=== PATIENT | female | born 1955 | race Caucasian/White ===

== ENCOUNTER 2025-04-20 09:27 | Inpatient (IN) ==
--- NOTE | 2025-04-20 09:50 | Emergency Department Note ---
Impression & Plan Vomiting and diarrhea, Chills, Hypomagnesemia, Hypokalemia, History of Whipple procedure ED Provider Note NAME: SUN JONES AGE: 69 SEX: F : 1955 ARRIVES VIA: Ambulance INFORMANT: [Patient] ED PROVIDER(S): [Lucio Reyes MD] CHIEF COMPLAINT: Illness HISTORY OF PRESENT ILLNESS: Patient is a 69-year-old female who presents with chills, vomiting and diarrhea. This all began this morning. She felt fine yesterday. The patient has not had sick contacts, no bad food eaten. The patient did have a Whipple procedure at [facility] 2 weeks ago. She still has a drain in place. There has been no cough or congestion. She has not had any increased abdominal pain, no abdominal bloating. No urinary complaints. She states there is no blood in the vomit or diarrhea. PMHx/PSHx/Social Hx: See Below PHYSICAL EXAM: GENERAL: Patient is in no acute distress. HEENT: No acute trauma, normocephalic atraumatic, mucous membranes dry, no nasal congestion. NECK: No stridor, no adenopathy, no meningismus, trachea is midline. LUNGS: Clear to auscultation bilaterally, no wheeze, no rhonchi, breath sounds equal. HEART: Mildly tachycardic, regular rhythm, no murmurs. ABDOMEN: Soft, nontender, no peritonitis. No distention. She has some healing surgical wounds. There is a drain present in the right upper to mid abdomen. EXTREMITIES: No cyanosis, full range of motion of all the joints without pain or difficulty. NEUROLOGIC: Oriented x 3, no acute motor or sensory deficits, no focal weakness. SKIN: No jaundice, no diaphoresis. DIFFERENTIAL DIAGNOSIS: Foodborne or viral illness, electrolyte imbalance, dehydration, bowel obstruction, among others. EMERGENCY DEPARTMENT PROCEDURES: MEDICAL DECISION MAKING: There is no leukocytosis or concerning anemia. There is a normal platelet count. There is no bandemia. Potassium and magnesium were both somewhat low, no renal failure. No concerning liver enzyme elevation. No evidence for pancreatitis. Urinalysis does not show findings of infection. ECG shows a sinus rhythm, no obvious ST elevation. Abdominal and pelvis CT shows findings consistent with her recent surgery, no bowel obstruction. Lactic acid level is not elevated making severe sepsis less likely. The patient received IV saline, 1.5 L. She was given IV potassium, IV magnesium. She was given IV Zofran. She eventually received a dose of IV cefepime as empiric antibiotic coverage. She received IV Tylenol. The patient was feeling improved with the treatment mentioned above. I did reach out to her surgical team at [facility]. The patient does not need emergent transfer to their facility. Observation was felt warranted here at our facility. The patient is going to be hospitalized here at [facility] for observation. If she does well, she can likely be discharged home. If she worsens, transfer to [place] may be required. At this point, the cause for her complaints is unclear, certainly, viral illness or foodborne illness is a consideration. Postsurgical infection is a consideration. I did speak with case management, the on-call hospitalist was consulted. Prior/Outside records/notes reviewed: Today's EMS notes describing her presentation and transport to this hospital. ECG per my interpretation: Indication was tachycardia. The ECG shows a normal sinus rhythm with a rate of 92. There is some baseline artifact. There is an old inferior infarct. There is no ST elevation, no PVCs. QTc is 425. Continuous Cardiac Monitoring per my interpretation: An order was placed for continuous cardiac monitoring. The monitor shows a rate of 95 with normal sinus rhythm. Imaging/x-ray results per my interpretation: Chronic Medical/Social conditions affecting care: Whipple procedure performed 2 weeks ago at [facility] Care/Management discussed with: Case management, the on-call hospitalist. Surgical oncology at [facility]-Dr. Ta Level of care consideration(s): After review of the information above and other included data: --I believe the patient requires escalation of care to admission Critical Care Note: I have personally spent 46 minutes of critical care time in the direct management of this patient. This includes bedside care, interpretation of diagnostic studies, and testing, discussion with consultants, patient, and family members, and other required patient management activities. This 46 minutes is in excess of all separately billable procedures. DISPOSITION: Admission Past Med/Surg History Problem List (Updated 04/20/25 @ 13:36 by Jose Crespo MD) Hypokalemia Hypomagnesemia GERD (gastroesophageal reflux disease) Primary hypothyroidism Essential hypertension H/O Whipple procedure Viral gastroenteritis H/O bilateral inguinal hernia repair (07/28/21) Open Bilateral Inguinal Hernia Repair with Mesh(Bilateral) - Oj Najera, DO Open Umbilical Hernia Repair 07/28/21 Encounter for pre-operative examination Arthritis Umbilical hernia without mention of obstruction or gangrene Bilateral inguinal hernia (BIH) Epistaxis Did have nosebleed to left side beginning of Jul 2021 - had recent cauterization- if anything needs put up nose- patient requests right side Medical History Hyperlipidemia BORDERLINE-NO MEDS Osteoarthritis Hiatal hernia IBS (irritable bowel syndrome) GERD (gastroesophageal reflux disease) Hypothyroidism Anxiety Hypertension Sleep apnea CPAP Hx of thyroid nodule Surgical History (Updated 04/20/25 @ 13:35 by Jose Crespo MD) H/O umbilical hernia repair Open Bilateral Inguinal Hernia Repair with Mesh(Bilateral) - Oj Najera, DO Open Umbilical Hernia Repair 07/28/21 History of esophagogastroduodenoscopy (EGD) History of nasal cauterization History of surgery BLADDER SLING PROCEDURE History of wisdom tooth extraction History of tonsillectomy History of D&C History of cholecystectomy Status post trigger finger release History of colonoscopy 2020 History of partial thyroidectomy FOR NODULE-BENIGN Family History Brother Thyroid cancer Father Diabetes Stroke Mother Family history of reaction to anesthesia PONV Other Hypertension No significant family history Social History Smoking Status: Never smoker Second Hand Exposure: No; Do You Dip or Chew Tobacco: No; Hx Alcohol Use: No Hx Substance Use: No Preferred Language: Citizen Of The [place] Communication Ability: Effective Ring Maker Required: No Beliefs That Will Affect Care: None marital status: Current Living Situation: Family Current Living Situation Comment: DAUGHTER LIVES WITH PT current occupational status: retired How many Children do You have: 3 Feels Safe at Home: Yes Diet: regular during the past year weight has: remained stable Assistive Devices: Glasses Allergies Allergies Allergy/AdvReac Type Severity Reaction Status Date / Time piperacillin [From Zosyn] Allergy Mild itching, Unverified 04/20/25 12:32 rash tazobactam [From Zosyn] Allergy Mild itching, Unverified 04/20/25 12:32 rash amoxicillin AdvReac Mild Diarrhea Verified 09/14/21 09:37 Home Meds Home Medications Medication Instructions Recorded Confirmed amlodipine 5 mg tablet 5 mg PO QAM 09/21/19 04/20/25 levothyroxine 50 mcg tablet 75 mcg PO QAM 09/21/19 04/20/25 sertraline 100 mg tablet 100 mg PO QAM 09/21/19 04/20/25 acetaminophen 500 mg tablet 500 - 1,000 mg PO Q6H PRN Pain 07/22/21 04/20/25 vitamin B complex 0 cap PO QPM 07/22/21 04/20/25 Eliquis 1 tab PO BID 04/20/25 04/20/25 betamethasone, augmented 0.05 % 1 applic topical BID PRN Other 04/20/25 04/20/25 topical cream [id number] 2 cap PO UD 04/20/25 04/20/25 36,000-114,000-180,000 unit capsule,delay rel (Creon) ondansetron HCl 4 mg tablet 4 mg PO DAILY PRN n/v 04/20/25 04/20/25 oxycodone 5 mg tablet 5 mg PO DIRECTED PRN Pain 04/20/25 04/20/25 pantoprazole 40 mg tablet,delayed 40 mg PO BID 04/20/25 04/20/25 release rosuvastatin 10 mg tablet 10 mg PO DAILY 04/20/25 04/20/25 Results & Data (ED) Vital Signs Vital Signs - 24 hr 04/20/25 09:30 04/20/25 09:42 04/20/25 10:00 Temperature 37.6 C H Temperature Source Oral Pulse Rate 95 H 95 H Pulse Rate [Apical] Pulse Rate from SpO2 Sensor Pulse Rhythm [Apical] Pulse Strength [Apical] Respiratory Rate 24 Respiratory Effort / Characteristics Respiratory Depth Respiratory Pattern Blood Pressure 121/68 Blood Pressure [Right Arm] Blood Pressure Mean 85 Blood Pressure Mean [Right Arm] Blood Pressure Position Semi-fowlers Blood Pressure Position [Right Arm] Pulse Oximetry 90 88 L Oxygen Delivery Method Room Air Room Air Oxygen Flow Rate Sepsis Recent Fever Within 48 Hours No Sepsis New/Unexplained Change in Mental Status No Sepsis Action Taken by Nursing No Action Required 04/20/25 10:01 04/20/25 10:15 04/20/25 10:30 Temperature Temperature Source Pulse Rate 83 Pulse Rate [Apical] Pulse Rate from SpO2 Sensor 82 Pulse Rhythm [Apical] Pulse Strength [Apical] Respiratory Rate 23 Respiratory Effort / Characteristics Respiratory Depth Respiratory Pattern Blood Pressure 114/70 116/63 Blood Pressure [Right Arm] Blood Pressure Mean 84 84 Blood Pressure Mean [Right Arm] Blood Pressure Position Blood Pressure Position [Right Arm] Pulse Oximetry 93 92 Oxygen Delivery Method Nasal Cannula Nasal Cannula Oxygen Flow Rate 2 2 Sepsis Recent Fever Within 48 Hours Sepsis New/Unexplained Change in Mental Status Sepsis Action Taken by Nursing 04/20/25 10:30 04/20/25 10:30 04/20/25 10:30 Temperature Temperature Source Pulse Rate 76 Pulse Rate [Apical] Pulse Rate from SpO2 Sensor 76 Pulse Rhythm [Apical] Pulse Strength [Apical] Respiratory Rate Respiratory Effort / Characteristics Respiratory Depth Respiratory Pattern Blood Pressure 116/63 116/63 Blood Pressure [Right Arm] Blood Pressure Mean 84 84 Blood Pressure Mean [Right Arm] Blood Pressure Position Blood Pressure Position [Right Arm] Pulse Oximetry 90 Oxygen Delivery Method Oxygen Flow Rate Sepsis Recent Fever Within 48 Hours Sepsis New/Unexplained Change in Mental Status Sepsis Action Taken by Nursing 04/20/25 11:00 04/20/25 11:00 04/20/25 11:00 Temperature Temperature Source Pulse Rate 76 Pulse Rate [Apical] Pulse Rate from SpO2 Sensor 74 Pulse Rhythm [Apical] Pulse Strength [Apical] Respiratory Rate 13 Respiratory Effort / Characteristics Respiratory Depth Respiratory Pattern Blood Pressure 120/72 120/72 Blood Pressure [Right Arm] Blood Pressure Mean 77 77 Blood Pressure Mean [Right Arm] Blood Pressure Position Blood Pressure Position [Right Arm] Pulse Oximetry 94 Oxygen Delivery Method Oxygen Flow Rate Sepsis Recent Fever Within 48 Hours Sepsis New/Unexplained Change in Mental Status Sepsis Action Taken by Nursing 04/20/25 11:36 04/20/25 11:42 04/20/25 12:00 Temperature Temperature Source Pulse Rate 68 80 Pulse Rate [Apical] Pulse Rate from SpO2 Sensor 68 81 Pulse Rhythm [Apical] Pulse Strength [Apical] Respiratory Rate Respiratory Effort / Characteristics Respiratory Depth Respiratory Pattern Blood Pressure 122/70 Blood Pressure [Right Arm] Blood Pressure Mean 91 Blood Pressure Mean [Right Arm] Blood Pressure Position Blood Pressure Position [Right Arm] Pulse Oximetry 96 97 Oxygen Delivery Method Oxygen Flow Rate Sepsis Recent Fever Within 48 Hours Sepsis New/Unexplained Change in Mental Status Sepsis Action Taken by Nursing 04/20/25 12:00 04/20/25 12:00 04/20/25 12:03 Temperature Temperature Source Pulse Rate 73 Pulse Rate [Apical] Pulse Rate from SpO2 Sensor 73 Pulse Rhythm [Apical] Pulse Strength [Apical] Respiratory Rate 20 Respiratory Effort / Characteristics Respiratory Depth Respiratory Pattern Blood Pressure 122/70 122/70 Blood Pressure [Right Arm] Blood Pressure Mean 91 91 Blood Pressure Mean [Right Arm] Blood Pressure Position Blood Pressure Position [Right Arm] Pulse Oximetry 95 Oxygen Delivery Method Oxygen Flow Rate Sepsis Recent Fever Within 48 Hours Sepsis New/Unexplained Change in Mental Status Sepsis Action Taken by Nursing 04/20/25 12:21 04/20/25 12:30 04/20/25 12:30 Temperature Temperature Source Pulse Rate 71 Pulse Rate [Apical] Pulse Rate from SpO2 Sensor 72 Pulse Rhythm [Apical] Pulse Strength [Apical] Respiratory Rate 21 Respiratory Effort / Characteristics Respiratory Depth Respiratory Pattern Blood Pressure 114/72 114/72 Blood Pressure [Right Arm] Blood Pressure Mean 87 87 Blood Pressure Mean [Right Arm] Blood Pressure Position Blood Pressure Position [Right Arm] Pulse Oximetry 95 Oxygen Delivery Method Oxygen Flow Rate Sepsis Recent Fever Within 48 Hours Sepsis New/Unexplained Change in Mental Status Sepsis Action Taken by Nursing 04/20/25 12:36 04/20/25 13:00 Temperature Temperature Source Pulse Rate 75 Pulse Rate [Apical] 69 Pulse Rate from SpO2 Sensor 75 Pulse Rhythm [Apical] Regular Pulse Strength [Apical] Normal Respiratory Rate 18 20 Respiratory Effort / Characteristics Non-Labored Spontaneous Respiratory Depth Normal Respiratory Pattern Regular Blood Pressure Blood Pressure [Right Arm] 112/69 Blood Pressure Mean Blood Pressure Mean [Right Arm] 83 Blood Pressure Position Blood Pressure Position [Right Arm] Lying Pulse Oximetry 96 90 Oxygen Delivery Method Room Air Oxygen Flow Rate Sepsis Recent Fever Within 48 Hours Sepsis New/Unexplained Change in Mental Status Sepsis Action Taken by [facility] Medications Current Medication List: was personally reviewed by me Laboratory Data Attestation: I reviewed the patient's lab results. 04/20/25 09:45 04/20/25 09:45 Lab Results 04/20/25 04/20/25 04/20/25 Range/Units 09:45 10:57 12:04 WBC 10.01 (4.8-10.8) K/ul RBC 4.27 (4.20-5.40) M/uL Hgb 12.0 (12.0-16.0) g/dl Hct 36.4 L (37.0-47.0) % MCV 85.2 (80.0-100.0) fL MCH 28.1 (25.0-34.0) pg MCHC 33.0 (32.0-36.0) g/dL RDW Std Deviation 42.6 (36.4-46.3) fL RDW Coeff of Swathi 13.6 (11.5-14.5) % Plt Count 308 (130-400) K/uL MPV 9.1 L (9.4-12.4) fL Immature Gran % (Auto) 1.0 % Neut % (Auto) 84.0 % Lymph % (Auto) 4.1 % Preston % (Auto) 8.9 % Eos % (Auto) 1.7 % Baso % (Auto) 0.3 % Neut # (Auto) 8.41 H (1.40-6.50) K/uL Lymph # (Auto) 0.41 L (1.20-3.40) K/uL Preston # (Auto) 0.89 H (0.11-0.59) K/uL Eos # (Auto) 0.17 (0.00-0.50) K/uL Baso # (Auto) 0.03 (0.00-0.20) K/uL Immature Gran # (Auto) 0.10 (0.01-0.20) K/uL Sodium 138 (136-145) mmol/L Potassium 3.1 L (3.5-5.1) mmol/L Chloride 101 (98-107) mmol/L Carbon Dioxide 27 (21-32) mmol/L Anion Gap 10 (3-11) BUN 12 (6-23) mg/dl Creatinine 0.66 (0.6-1.2) mg/dl Est Cr Clr Drug Dosing 86.9 ml/min eGFR 95.49 BUN/Creatinine Ratio 18.2 (10-20) Glucose 140 H (70-99(Fasting)) mg/dl Lactate 0.7 (0.4-2.0) mmol/L Calcium 8.5 L (8.6-10.3) mg/dl Magnesium 1.6 L (1.7-2.4) mg/dl Total Bilirubin 0.6 (0.2-1.0) mg/dl AST 19 (13-39) U/L ALT 17 (7-52) U/L Alkaline Phosphatase 64 (34-104) U/L Total Protein 7.1 (6.0-8.3) gm/dl Albumin 3.5 (3.4-5.0) gm/dl Globulin 3.6 (2.5-4.0) gm/dl Albumin/Globulin Ratio 1.0 (0.9-2) Lipase 57 (11-82) U/L Urine Color Yellow Urine Appearance Clear (Clear) Urine pH 6.5 (4.5-7.5) Ur Specific Hurley 1.029 (1.000-1.030) Urine Protein Negative (Negative) Urine Glucose (UA) Negative (Negative) Urine Ketones Negative (Negative) Urine Blood Negative (Negative) Urine Nitrite Negative (Negative) Urine Bilirubin Negative (Negative) Urine Urobilinogen Negative (Negative) Ur Leukocyte Esterase Negative (Negative) Urine Comment Administered Medications Discontinued Medications Sodium Chloride (Nss) 1,000 mls @ 999 mls/hr IV .Q1H1M ONE Stop: 04/20/25 10:42 Last Infusion: 04/20/25 11:16 Dose: Infused Documented By: Admin: 04/20/25 09:56 Dose: 999 mls/hr Documented By: CEF Acetaminophen (Ofirmev) 1,000 mg in 100 mls @ 400 mls/hr IV NOW STA Stop: 04/20/25 09:56 Last Infusion: 04/20/25 10:28 Dose: Infused Documented By: Admin: 04/20/25 09:59 Dose: 400 mls/hr Documented By: CEF Potassium Chloride (K Alexei / Wtr) 10 meq in 100 mls @ 100 mls/hr IV ONE ONE Stop: 04/20/25 11:58 Last Infusion: 04/20/25 12:17 Dose: Infused Documented By: Admin: 04/20/25 11:13 Dose: 100 mls/hr Documented By: GARDENIA Magnesium Sulfate/Dextrose (Magnesium Sulfate / D5w) 1 gm in 100 mls @ 100 mls/hr IV NOW STA Stop: 04/20/25 11:58 Last Infusion: 04/20/25 12:16 Dose: Infused Documented By: Admin: 04/20/25 11:13 Dose: 100 mls/hr Documented By: GARDENIA Piperacillin Sod/Tazobactam Sod (Zosyn) 4.5 gm in 100 mls @ 200 mls/hr IV NOW ONE Stop: 04/20/25 12:17 Last Admin: 04/20/25 12:16 Dose: Not Given Documented By: GARDENIA Cefepime HCl (Maxipime 2000mg) 2,000 mg in 20 mls @ 5 mls/min IV NOW STA; Protocol Stop: 04/20/25 12:12 Last Admin: 04/20/25 12:20 Dose: 5 mls/min Documented By: GARDENIA Sodium Chloride (Nss) 500 mls @ 999 mls/hr IV .Q31M ONE Stop: 04/20/25 12:40 Last Admin: 04/20/25 12:20 Dose: 999 mls/hr Documented By: GARDENIA Ioversol (Optiray 320 100ml) 94 ml IV ONCE ONE Stop: 04/20/25 10:50 Last Admin: 04/20/25 10:49 Dose: 94 ml Documented By: MIKE Ondansetron HCl (Ondansetron Inj 2 Mg/Ml 2 Ml Vial) 4 mg IV NOW STA Stop: 04/20/25 09:43 Last Admin: 04/20/25 09:55 Dose: 4 mg Documented By: ROSAMARIA Imaging Data Radiologist's Impression: Abdomen/Pelvis CT 04/20/25 09:42 CT SCAN OF THE ABDOMEN AND PELVIS WITH IV CONTRAST CLINICAL HISTORY: Status post Whipple. Nausea and vomiting. COMPARISON STUDY: CT of the abdomen and pelvis February 10, 2021. TECHNIQUE: Following the IV administration of 94 cc of Optiray 320, CT scan of the abdomen and pelvis is performed from the lung bases to the proximal femora. Images are reviewed in the axial, sagittal, and coronal planes. IV contrast was administered without complication. A dose lowering technique was utilized adhering to the principles of ALARA. CT DOSE: 1230.16 mGy.cm FINDINGS: Visualized lung bases are unremarkable. No pneumatosis, free air or portal venous gas is present. A surgical drain is in place following Whipple procedure. Note, there is moderate to extensive subcutaneous gas within the visualized lower chest, abdomen and pelvis. No associated fluid collections are present. An elongated operative bed fluid collection measures 5.8 x 2.1 cm. This has mild peripheral enhancement. A small amount of fluid adjacent to the proximal jejunum is also noted. Adjacent stranding is present. Mild enhancement of the common bile duct is noted without biliary ductal dilatation. There are no hepatic lesions. There is mild splenomegaly. Adrenal glands and left kidney are normal. There is a 9.4 cm right renal cyst. There is no hydronephrosis. Trace fluid within the pelvis is present. Note is made of extensive sigmoid diverticulosis without evidence for acute diverticulitis. Major vasculature is patent. There are mildly enlarged peripancreatic and mesenteric lymph nodes. A peripancreatic lymph node on image 132 measures 1.8 x 1.5 cm. A mesenteric lymph node on image 201 measures 2 x 1.2 cm. IMPRESSION: 1. Status post Whipple procedure. 5.8 x 2.1 cm elongated operative bed fluid collection with minimal peripheral enhancement. This is likely postsurgical and favors a seroma. Small amount of fluid with adjacent stranding within the right upper quadrant which is likely postsurgical. Surgical drain in place. 2. Moderate to extensive subcutaneous gas within the lower chest, abdomen and pelvis. This may be postsurgical however is indeterminate and the etiology is not clearly identified on this examination. No fistula identified. An occult fistula or infectious process with necrotizing fasciitis cannot be completely excluded and could be correlated clinically. No associated fluid collections. No pneumoperitoneum. 3. Wall thickening of the common bile duct and proximal jejunum which is likely postsurgical status post choledochojejunostomy. 4. Mildly enlarged peripancreatic and mesenteric lymph nodes. These are likely reactive but should be assessed on follow-up exams to ensure resolution. ACT 112: Negative or not required by law. Electronically signed by: Saw Schroeder M.D. 04/20/2025 11:40 AM Discharge Plan Visit Data Chief Complaint: Illness ED Provider: Lucio Reyes Discharge Problem: Vomiting and diarrhea, Chills, Hypomagnesemia, Hypokalemia, History of Whipple procedure Patient Disposition: Admitted As Inpatient Condition: Fair Forms Stand Alone Forms: [employer] Prescriptions Prescriptions: No Action sertraline 100 mg Tablet 100 mg PO QAM amlodipine 5 mg Tablet 5 mg PO QAM levothyroxine 50 mcg Tablet 75 mcg PO QAM vitamin B complex Capsule 0 cap PO QPM Patient Comments: 04/20- per pt she currently has this on hold acetaminophen 500 mg Tablet 500 - 1,000 mg PO Q6H PRN (Reason: Pain) ondansetron HCl 4 mg tablet 4 mg PO DAILY PRN (Reason: n/v) betamethasone, augmented 0.05 % cream 1 applic topical BID PRN (Reason: Other) pantoprazole 40 mg tablet,delayed release (DR/EC) 40 mg PO BID oxycodone 5 mg tablet 5 mg PO DIRECTED PRN (Reason: Pain) rosuvastatin 10 mg tablet 10 mg PO DAILY Creon 36,000-114,000- 180,000 unit capsule,delayed release(DR/EC) 2 cap PO UD Rx Instructions: 2 with meals and 1 with snack Eliquis 1 tab PO BID Patient Comments: 04/20- per pt she's only taking temporarily due to surgery. She's unsure of the strength Referrals Referrals: Priyanka Lazcano, DO [Outside Practitioners] -
[2025-04-20] MEDS: ONDANSETRON INJ 2 MG/ML 2 ML VIAL IV STA (09:55)
[2025-04-20] MEDS: SODIUM CHLORIDE 0.9% 1,000 ML IV ONE (09:56)
[2025-04-20] MEDS: ACETAMINOPHEN 1,000 MG/100 ML VIAL IV STA (09:59)
[2025-04-20 10:13] LABS: Hematocrit (blood only) 36.4 % (37.0-47.0); Hemoglobin 12.0 g/dl (12.0-16.0); Immature Granulocytes # (auto) 0.10 K/uL (0.01-0.20); Immature Granulocytes % (auto) 1.0 %; Mean Corpuscular Hemoglobin 28.1 pg (25.0-34.0); Mean Corpuscular Volume 85.2 fL (80.0-100.0); Platelet Count 308 K/uL (130-400); RDW Standard Deviation 42.6 fL (36.4-46.3); Red Blood Count 4.27 M/uL (4.20-5.40); White Blood Count 10.01 K/ul (4.8-10.8)
[2025-04-20 10:37] LABS: Alanine Aminotransferase 17.0 U/L (7-52); Albumin Globulin Ratio 1.0 (0.9-2); Alkaline Phosphatase 64.0 U/L (34-104); Anion Gap 10.0 (3-11); Bilirubin,Total 0.6 mg/dl (0.2-1.0); Blood Urea Nitrogen 12.0 mg/dl (6-23); Calcium 8.5 mg/dl (8.6-10.3); Carbon Dioxide 27.0 mmol/L (21-32); Chloride 101.0 mmol/L (98-107); Creatinine Clr Calc Pharmacy 86.9 ml/min; Globulin 3.6 gm/dl (2.5-4.0); Glucose 140.0 mg/dl (70-99(Fasting)); Lipase 57.0 U/L (11-82); Magnesium 1.6 mg/dl (1.7-2.4); Potassium 3.1 mmol/L (3.5-5.1); Sodium 138.0 mmol/L (136-145); Total Protein 7.1 gm/dl (6.0-8.3)
[2025-04-20] MEDS: OPTIRAY 320 100ml IV ONE (10:49)
[2025-04-20 11:09] LABS: Appearance Urine Clear (Clear); Glucose Urine UA Negative (Negative)
[2025-04-20] MEDS: POTASSIUM CHLORIDE / WTR 10 MEQ/100 ML PLCT IV ONE (11:13)
[2025-04-20] MEDS: MAGNESIUM SULFATE / D5W 1 GM/100 ML BAG IV STA (11:13)
--- NOTE | 2025-04-20 11:41 | CT Scan Report ---
CT SCAN OF THE ABDOMEN AND PELVIS WITH IV CONTRAST CLINICAL HISTORY: Status post Whipple. Nausea and vomiting. COMPARISON STUDY: CT of the abdomen and pelvis February 10, 2021. TECHNIQUE: Following the IV administration of 94 cc of Optiray 320, CT scan of the abdomen and pelvi s is performed from the lung bases to the proximal femora. Images are reviewed in the axial, sagittal , and coronal planes. IV contrast was administered without complication. A dose lowering technique wa s utilized adhering to the principles of ALARA. CT DOSE: 1230.16 mGy.cm FINDINGS: Visualized lung bases are unremarkable. No pneumatosis, free air or portal venous gas is pr esent. A surgical drain is in place following Whipple procedure. Note, there is moderate to extensive subcutaneous gas within the visualized lower chest, abdomen and pelvis. No associated fluid collecti ons are present. An elongated operative bed fluid collection measures 5.8 x 2.1 cm. This has mild per ipheral enhancement. A small amount of fluid adjacent to the proximal jejunum is also noted. Adjacent stranding is present. Mild enhancement of the common bile duct is noted without biliary ductal dilat ation. There are no hepatic lesions. There is mild splenomegaly. Adrenal glands and left kidney are n ormal. There is a 9.4 cm right renal cyst. There is no hydronephrosis. Trace fluid within the pelvis is present. Note is made of extensive sigmoid diverticulosis without evidence for acute diverticuliti s. Major vasculature is patent. There are mildly enlarged peripancreatic and mesenteric lymph nodes. A peripancreatic lymph node on image 132 measures 1.8 x 1.5 cm. A mesenteric lymph node on image 201 measures 2 x 1.2 cm. IMPRESSION: 1. Status post Whipple procedure. 5.8 x 2.1 cm elongated operative bed fluid collection with minimal peripheral enhancement. This is likely postsurgical and favors a seroma. Small amount of fluid with a djacent stranding within the right upper quadrant which is likely postsurgical. Surgical drain in denny ce. 2. Moderate to extensive subcutaneous gas within the lower chest, abdomen and pelvis. This may be pos tsurgical however is indeterminate and the etiology is not clearly identified on this examination. No fistula identified. An occult fistula or infectious process with necrotizing fasciitis cannot be com pletely excluded and could be correlated clinically. No associated fluid collections. No pneumoperito neum. 3. Wall thickening of the common bile duct and proximal jejunum which is likely postsurgical status p ost choledochojejunostomy. 4. Mildly enlarged peripancreatic and mesenteric lymph nodes. These are likely reactive but should be assessed on follow-up exams to ensure resolution. ACT 112: Negative or not required by law. Electronically signed by: Saw Schroeder M.D. 04/20/2025 11:40 AM
[2025-04-20] MEDS: PIPERACILLIN/TAZOBACTAM 4.5 GM/100 ML BAG IV ONE (12:16)
[2025-04-20] MEDS: CEFEPIME 2000MG 2,000 MG/20 ML SYR IV STA (12:20)
[2025-04-20] MEDS: SODIUM CHLORIDE 0.9% 500 ML IV ONE (12:20)
--- NOTE | 2025-04-20 13:37 | History & Physical Report ---
Date of Service April 20, 2025 Assessment & Plan (1) Viral gastroenteritis: Plan: Suspected on admission. Clear liquids for now. Continuous IV fluids. Zofran IV as needed. Supportive care (2) Hypomagnesemia: Plan: Parenteral replacement. Serial lab (3) Hypokalemia: Plan: Parenteral replacement. Serial labs (4) H/O Whipple procedure: Plan: Recently done at [facility] with postsurgical drain still in place. Admission abdominal CT scan unremarkable except for benign-appearing seroma in the surgical bed (5) Essential hypertension: Plan: Stable. Continue amlodipine (6) Primary hypothyroidism: Plan: Stable. Continue Synthroid replacement (7) GERD (gastroesophageal reflux disease): Plan: Intravenous Protonix for now. Eventual switch back to oral intake Plan Supportive care. Antiemetics as needed. Hopeful discharge to home tomorrow, April 21 History of Present Illness Chief Complaint: Acute onset of nausea, vomiting, diarrhea Primary Care Provider: Esvin Brito DO 69-year-old white female who developed acute onset of nausea, vomiting and diarrhea today, April 20. This is probably a viral etiology. She recently underwent Whipple procedure at [facility] and still has a drain in place. CT scan of the abdomen done in the ED was unremarkable for acute findings except for a seroma in the surgery bed. Lipase is 57. She does not appear to be septic at all. Hopefully this is just a viral gastroenteritis and will resolve quickly. Magnesium is slightly low at 1.6 and potassium slightly low at 3.1. Both will be replaced and serial labs ordered. She is placed in observation for further assessment and treatment Allergies Allergy/AdvReac Type Severity Reaction Status Date / Time piperacillin [From Zosyn] Allergy Mild itching, Unverified 04/20/25 12:32 rash tazobactam [From Zosyn] Allergy Mild itching, Unverified 04/20/25 12:32 rash amoxicillin AdvReac Mild Diarrhea Verified 09/14/21 09:37 Home Medications Medication Instructions Recorded Confirmed Type amlodipine 5 mg tablet 5 mg PO QAM 09/21/19 04/20/25 History levothyroxine 50 mcg tablet 75 mcg PO QAM 09/21/19 04/20/25 History sertraline 100 mg tablet 100 mg PO QAM 09/21/19 04/20/25 History acetaminophen 500 mg tablet 500 - 1,000 mg PO Q6H PRN Pain 07/22/21 04/20/25 History vitamin B complex 0 cap PO QPM 07/22/21 04/20/25 History Eliquis 1 tab PO BID 04/20/25 04/20/25 History betamethasone, augmented 0.05 % 1 applic topical BID PRN Other 04/20/25 04/20/25 History topical cream [id number] 2 cap PO UD 04/20/25 04/20/25 History 36,000-114,000-180,000 unit capsule,delay rel (Creon) ondansetron HCl 4 mg tablet 4 mg PO DAILY PRN n/v 04/20/25 04/20/25 History oxycodone 5 mg tablet 5 mg PO DIRECTED PRN Pain 04/20/25 04/20/25 History pantoprazole 40 mg tablet,delayed 40 mg PO BID 04/20/25 04/20/25 History release rosuvastatin 10 mg tablet 10 mg PO DAILY 04/20/25 04/20/25 History Past Med/Surg History Problem List (Updated 04/20/25 @ 13:36 by Jose Crespo MD) Hypokalemia Hypomagnesemia GERD (gastroesophageal reflux disease) Primary hypothyroidism Essential hypertension H/O Whipple procedure Viral gastroenteritis H/O bilateral inguinal hernia repair (07/28/21) Open Bilateral Inguinal Hernia Repair with Mesh(Bilateral) - Oj Najera, DO Open Umbilical Hernia Repair 07/28/21 Encounter for pre-operative examination Arthritis Umbilical hernia without mention of obstruction or gangrene Bilateral inguinal hernia (BIH) Epistaxis Did have nosebleed to left side beginning of Jul 2021 - had recent cauterization- if anything needs put up nose- patient requests right side Medical History (Updated 04/20/25 @ 13:36 by Jose Crespo MD) Hyperlipidemia BORDERLINE-NO MEDS Osteoarthritis Hiatal hernia IBS (irritable bowel syndrome) GERD (gastroesophageal reflux disease) Hypothyroidism Anxiety Hypertension Sleep apnea CPAP Hx of thyroid nodule Surgical History (Updated 04/20/25 @ 13:35 by Jose Crespo MD) H/O umbilical hernia repair Open Bilateral Inguinal Hernia Repair with Mesh(Bilateral) - Oj Najera, DO Open Umbilical Hernia Repair 07/28/21 History of esophagogastroduodenoscopy (EGD) History of nasal cauterization History of surgery BLADDER SLING PROCEDURE History of wisdom tooth extraction History of tonsillectomy History of D&C History of cholecystectomy Status post trigger finger release History of colonoscopy 2020 History of partial thyroidectomy FOR NODULE-BENIGN Family History Brother Thyroid cancer Father Diabetes Stroke Mother Family history of reaction to anesthesia PONV Other Hypertension No significant family history Social History Smoking Status: Never smoker Second Hand Exposure: No; Do You Dip or Chew Tobacco: No; Hx Alcohol Use: No Hx Substance Use: No Preferred Language: Spanish Communication Ability: Effective Supervisor Files Required: No Beliefs That Will Affect Care: None marital status: Current Living Situation: Family Current Living Situation Comment: DAUGHTER LIVES WITH PT current occupational status: retired How many Children do You have: 3 Feels Safe at Home: Yes Diet: regular during the past year weight has: remained stable Assistive Devices: Glasses Review of Systems 2 Review of Systems: Constitutionalno fever or chills ENTno blurred vision, no double vision, no epistaxis, no sore throat Respiratoryno cough, no wheezing, no shortness of breath Cardiacno palpitations, no chest pain, no syncope GInausea vomiting and diarrhea started earlier today. No hematemesis. No melena or hematochezia. Denies abdominal cramping. GUno urinary retention, no urinary incontinence, no dysuria, no hematuria Musculoskeletalno joint pain, no muscle tenderness Skinno bruising, no rashes, no pruritus Neurono isolated weakness, no paresthesia, no weakness Psychno depression, no anxiety Physical Exam 2 Physical Exam: General-alert and oriented x3, no fever, no chills HEENT-head atraumatic and normocephalic, pupils equal and reactive to light, extraocular muscles intact Neck-no lymphadenopathy or thyromegaly, trachea midline Chest-clear to auscultation. No rales, wheezing or rhonchi Cardiac-regular rate and rhythm, normal S1 and S2 Abdomen-normal bowel sounds, no hepatosplenomegaly. Surgical drain in place in the epigastric region with minimal drainage seen. Abdominal surgical scars are healing without incident. Active bowel sounds. No hepatosplenomegaly. No palpable masses. No rebound or guarding. Extremities-no cyanosis, clubbing, or edema Neuro-cranial nerves II through XII intact, motor and sensory function within normal limits, strength symmetrical, no focal deficits Psych-normal affect, normal mood Results & Data Results & Data Vital Signs (Past 12 Hours) Vital Signs Temp Pulse Pulse Resp BP BP Pulse Ox 04/20/25 13:00 69 20 112/69 90 04/20/25 12:36 75 18 96 04/20/25 12:30 114/72 04/20/25 12:30 114/72 04/20/25 12:21 71 21 95 04/20/25 12:03 73 20 95 04/20/25 12:00 122/70 04/20/25 12:00 122/70 04/20/25 12:00 122/70 04/20/25 11:42 80 97 04/20/25 11:36 68 96 04/20/25 11:00 76 13 94 04/20/25 11:00 120/72 04/20/25 11:00 120/72 04/20/25 10:30 76 90 04/20/25 10:30 116/63 04/20/25 10:30 116/63 04/20/25 10:30 116/63 04/20/25 10:15 83 23 114/70 92 04/20/25 10:01 93 04/20/25 10:00 88 L 04/20/25 09:42 95 H 04/20/25 09:30 37.6 C H 95 H 24 121/68 90 O2 Del Method O2 Flow Rate 04/20/25 13:00 Room Air 04/20/25 12:36 04/20/25 12:30 04/20/25 12:30 04/20/25 12:21 04/20/25 12:03 04/20/25 12:00 04/20/25 12:00 04/20/25 12:00 04/20/25 11:42 04/20/25 11:36 04/20/25 11:00 04/20/25 11:00 04/20/25 11:00 04/20/25 10:30 04/20/25 10:30 04/20/25 10:30 04/20/25 10:30 04/20/25 10:15 Nasal Cannula 2 04/20/25 10:01 Nasal Cannula 2 04/20/25 10:00 Room Air 04/20/25 09:42 04/20/25 09:30 Room Air Laboratory Results 04/20/25 09:45 04/20/25 09:45 Code Status & VTE Plan Code Status Full code VTE Prophylaxis Plan VTE Prophylaxis will be ordered: Yes PG Care Time/CCT Total # of Minutes Spent Total Time Spent with Patient: Total time spent is greater than 50% in coordination of care (as documented) at patient's floor/unit and/or counseling patient: Coding Level of Care Code 82424 INT INP/OBS CARE 3/75MIN Diagnoses Viral gastroenteritis A08.4 Hypomagnesemia E83.42 Hypokalemia E87.6 H/O Whipple procedure Z90.410; Z90.49 Essential hypertension I10 Primary hypothyroidism E03.9 GERD (gastroesophageal reflux disease) K21.9
[2025-04-20] MEDS ORDERED: ACETAMINOPHEN 1,000 MG/100 ML VIAL IV PRN (15:37)
[2025-04-20] MEDS ORDERED: ONDANSETRON INJ 2 MG/ML 2 ML VIAL IV PRN (15:37)
[2025-04-20] MEDS: SODIUM CHLORIDE 0.9% 1,000 ML IV SCH (16:57)
[2025-04-21] MEDS: LEVOTHYROXINE SODIUM 75 MCG TABLET PO SCH (05:02)
[2025-04-21] MEDS: SERTRALINE HCL 100 MG TABLET PO SCH (07:09)
[2025-04-21 07:23] LABS: Hematocrit (blood only) 30.2 % (37.0-47.0); Hemoglobin 9.7 g/dl (12.0-16.0); Immature Granulocytes # (auto) 0.05 K/uL (0.01-0.20); Immature Granulocytes % (auto) 0.9 %; Mean Corpuscular Hemoglobin 27.9 pg (25.0-34.0); Mean Corpuscular Volume 86.8 fL (80.0-100.0); Platelet Count 228 K/uL (130-400); RDW Standard Deviation 43.3 fL (36.4-46.3); Red Blood Count 3.48 M/uL (4.20-5.40); White Blood Count 5.36 K/ul (4.8-10.8)
[2025-04-21 07:38] LABS: Alanine Aminotransferase 12.0 U/L (7-52); Albumin Globulin Ratio 1.0 (0.9-2); Alkaline Phosphatase 50.0 U/L (34-104); Anion Gap 5.0 (3-11); Bilirubin,Total 0.3 mg/dl (0.2-1.0); Blood Urea Nitrogen 6.0 mg/dl (6-23); Calcium 7.7 mg/dl (8.6-10.3); Carbon Dioxide 29.0 mmol/L (21-32); Chloride 107.0 mmol/L (98-107); Creatinine Clr Calc Pharmacy 91.0 ml/min; Globulin 2.9 gm/dl (2.5-4.0); Glucose 119.0 mg/dl (70-99(Fasting)); Lipase 58.0 U/L (11-82); Potassium 3.3 mmol/L (3.5-5.1); Sodium 141.0 mmol/L (136-145); Total Protein 5.9 gm/dl (6.0-8.3)
--- NOTE | 2025-04-21 09:37 | Discharge Summary ---
Discharge Summary Date of Service April 21, 2025 Principal Dx & Hospital Course #1 = Principal Diagnosis (1) Viral gastroenteritis: Suspected on admission. She is now asymptomatic. Examination is benign. (2) Hypomagnesemia: Corrected with parenteral replacement. Serial lab (3) Hypokalemia: Parenteral replacement was administered on admission. Potassium is improved but still remain slightly low today, April 21, at 3.3. More oral replacement ordered. (4) H/O Whipple procedure: Recently done at with postsurgical drain still in place. Admission abdominal CT scan unremarkable except for benign-appearing seroma in the surgical bed. She will [place] [facility] later this week (5) Essential hypertension: Stable. Continue amlodipine (6) Primary hypothyroidism: Stable. Continue Synthroid replacement (7) GERD (gastroesophageal reflux disease): Intravenous Protonix while hospitalized. Resume oral intake at discharge. Plan Home today, April 21 Admission HPI Per Admitting Provider 69-year-old white female who developed acute onset of nausea, vomiting and diarrhea today, April 20. This is probably a viral etiology. She recently underwent Whipple procedure at and still has a drain in place. CT scan of the abdomen done in the ED was unremarkable for acute findings except for a seroma in the surgery bed. Lipase is 57. She does not appear to be septic at all. Hopefully this is just a viral gastroenteritis and will resolve quickly. Magnesium is slightly low at 1.6 and potassium slightly low at 3.1. Both will be replaced and serial labs ordered. She is placed in observation for further assessment and treatment Discharge Exam General-alert and oriented x3, no fever, no chills HEENT-head atraumatic and normocephalic, pupils equal and reactive to light, extraocular muscles intact Neck-no lymphadenopathy or thyromegaly, trachea midline Chest-clear to auscultation. No rales, wheezing or rhonchi Cardiac-regular rate and rhythm, normal S1 and S2 Abdomen-normal bowel sounds, no hepatosplenomegaly. Surgical drain in place in the epigastric region with minimal drainage seen. Abdominal surgical scars are healing without incident. Active bowel sounds. No hepatosplenomegaly. No palpable masses. No rebound or guarding. Extremities-no cyanosis, clubbing, or edema Neuro-cranial nerves II through XII intact, motor and sensory function within normal limits, strength symmetrical, no focal deficits Psych-normal affect, normal mood Discharge Plan Discharge Items Patient Disposition: Home - Self-Care Reason For Visit: N/V/D Discharge Diagnosis: Viral gastroenteritis, hypokalemia, hypomagnesemia Condition on Discharge: Good Activity: Resume your previous activity Non-emergency contact: Primary Care Provider Call non-emergency contact if: your symptoms worsen Follow-up/Referrals: Esvin Brito DO [Primary Care Provider] - Diet: Regular Addtl Attending Provider Instructions: [place] [facility] [place] Pending Studies at Discharge: No Stand-Alone Forms: My [facility], Smoking Cessation Medications and DC Order Prescriptions: Continued sertraline 100 mg Tablet 100 mg PO QAM amlodipine 5 mg Tablet 5 mg PO QAM levothyroxine 50 mcg Tablet 75 mcg PO QAM vitamin B complex Capsule 0 cap PO QPM Patient Comments: 04/20- per pt she currently has this on hold acetaminophen 500 mg Tablet 500 - 1,000 mg PO Q6H PRN (Reason: Pain) ondansetron HCl 4 mg tablet 4 mg PO DAILY PRN (Reason: n/v) betamethasone, augmented 0.05 % cream 1 applic topical BID PRN (Reason: Other) pantoprazole 40 mg tablet,delayed release (DR/EC) 40 mg PO BID oxycodone 5 mg tablet 5 mg PO DIRECTED PRN (Reason: Pain) rosuvastatin 10 mg tablet 10 mg PO DAILY Creon 36,000-114,000- 180,000 unit capsule,delayed release(DR/EC) 2 cap PO UD Rx Instructions: 2 with meals and 1 with snack Eliquis 1 tab PO BID Patient Comments: 04/20- per pt she's only taking temporarily due to surgery. She's unsure of the strength Discharge Orders: Discharge Order (Routine); Ordered 04/21/25 Ordered By: Jose Crespo Admission Data Admit Date/Time: 04/20/25 13:25 Attending Provider: Jose Crespo Admit Provider: Jose Crespo Primary Care Provider: Esvin Briot Other Providers: Jose Crespo Hospital Stay Data Consultations 04/20/25 13:07 ED Decision to Admit Stat Diagnostic Imagining Performed 04/20/25 09:42 CT abd pelvis IV con only Stat Pending Results Patient Have Any Pending Studies at Discharge: No Discharge Instructions Given to Patient (Per Discharging Provider) [place] [facility] [place] Total Time Total Time Spent Total Time Spent (In Minutes): 45 minutes Coding Level of Care Code 56296 INP/OBS DISCH >30 MIN Diagnoses Viral gastroenteritis A08.4 Hypomagnesemia E83.42 Hypokalemia E87.6 H/O Whipple procedure Z90.410; Z90.49 Essential hypertension I10 Primary hypothyroidism E03.9 GERD (gastroesophageal reflux disease) K21.9
--- NOTE | 2025-04-21 09:37 | Communication Note ---
Date of Service: April 21, 2025 By CMS guidelines, a determination that the admission or continued stay is not medically necessary has been made by a member of the UR committee and a physi cyndee for this hospital stay, therefore a Code 44 will be completed and the Inpatient admission will be changed to outpatient.
--- NOTE | 2025-04-21 09:46 | Communication Note ---
Date of Service: April 21, 2025 By CMS guidelines, a determination that the admission or continued stay is not medically necessary has been made by a member of the UR committee and a physi cyndee for this hospital stay, therefore a Code 44 will be completed and the Inpatient admission will be changed to outpatient. Juan Carlos Neumann MD Member, Utilization Review Committee
[2025-04-21] MEDS: POTASSIUM CHLORIDE CRTAB 20 MEQ TABCR PO STA (10:02)
[2025-04-21 11:01] LABS: Adenovirus F 40/41 PCR Not Detected (NotDetected); Campylobacter PCR Not Detected (NotDetected); Enteroaggregative E.coli(EAEC) Not Detected (NotDetected); Shiga-like Toxin E.coli (STEC) Not Detected (NotDetected); Vibrio species PCR Not Detected (NotDetected)
[2025-04-21] MEDS: PANTOprazole 40 MG/10 ML SYR IV SCH (11:14)
--- NOTE | 2025-04-24 13:36 | Electrocardiogram Report ---
Test Reason : Blood Pressure : */* mmHG Vent. Rate : 92 BPM Atrial Rate : 92 BPM P-R Int : 142 ms QRS Dur : 80 ms QT Int : 344 ms P-R-T Axes : -13 -11 -14 degrees QTcB Int : 425 ms Normal sinus rhythm Inferior infarct , age undetermined Abnormal ECG When compared with ECG of 13-Jul-2021 11:24, Inferior infarct is now Present T wave inversion now evident in Inferior leads Confirmed by Randall Solitario ([id number]) on 04/24/2025 1:36:08 PM Referred By: REFERRED SELF Confirmed By: Randall Solitario
== END 2025-04-21 11:56 | disposition home or self-care (01) | DRG 392 ==
LOC: SUATTDRO → ED 09:27 → EDINP 13:25 → 3N 16:39